=== PATIENT | female | born 2000 | race Caucasian/White ===

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

== ENCOUNTER 2024-12-21 11:31 | Emergency (ER) | payer MEDICAID, SELFPAY ==
[2024-12-21 11:32] VITALS: BP 117/74; PULSE 114; RESP 18; TEMP 36.6; O2SAT 100; BMI 41.0
--- NOTE | 2024-12-21 11:45 | EKG12_ITS ---
Test Reason : SOB Blood Pressure : */* mmHG Vent. Rate : 98 BPM Atrial Rate : 98 BPM P-R Int : 146 ms QRS Dur : 82 ms QT Int : 358 ms P-R-T Axes : 48 37 24 degrees QTcB Int : 457 ms Normal sinus rhythm Normal ECG Confirmed by ERMELINDA PRICE, DANITA ([id number]), commercial production editor JUAN A SIMMONS ([id number]) on 12/23/2024 6:32:27 AM Referred By: HAVEN Confirmed By: DANITA WADSWORTH MD
--- NOTE | 2024-12-21 11:53 | EDS_ITS ---
HPI <LESTER Justin - Last Filed: 12/21/24 17:49> History of Present Illness Chief Complaint: Shortness of Breath Narrative Narrative: Patient presenting today with shortness of breath and lightheadedness that have been ongoing over the past several weeks. She is currently 25 weeks , she is G2, P1. She reports that her symptoms worsened this morning, prompting her to come in. She primarily notices the shortness of breath with exertion but does occasionally have it at rest as well. 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 She denies any history of blood clots or recent surgery/travel/immobilization. She denies any complications with her previous , she reports that she is healthy otherwise, no cardiac history PFSH <LESTER Justin - Last Filed: 12/21/24 17:49> PFSH Medical History Sinus tachycardia Home Medications ?Medication ?Instructions ?Recorded ?Last Taken ?Type metoprolol succinate 25 mg 25 mg PO DAILY PRN 06/29/23 Unknown History tablet,extended release 24 hr (Toprol XL) Allergy/AdvReac Type Severity Reaction Status Date / Time No Known Allergies Allergy Verified 12/21/24 11:32 Family History Grandfather Diabetes Myocardial infarction Father Hypertension Surgical History Previous section Social History Smoking Status: Current every day smoker tobacco type: e-cigarettes alcohol intake: current substance use type: does not use caffeine: No ROS <LESTER Justin - Last Filed: 12/21/24 17:49> ROS ED Constitutional Constitutional ED: Denies chills or fever(s) Cardiovascular Cardiovascular: Denies chest pain Respiratory/Chest Respiratory/Chest: Reports dyspnea and dyspnea on exertion; Denies cough Gastrointestinal Gastrointestinal: Denies abdominal pain, nausea or vomiting Genitourinary Genitourinary ED: Reports other Details: Patient denies vaginal bleeding ; Denies dysuria, hematuria or urinary urgency Musculoskeletal Musculoskeletal: Denies arthralgias or myalgias Integumentary Denies rash Neurologic Neurologic: Reports other Details: Patient denies vertiginous dizziness ; Denies weakness EXAM <LESTER Justin - Last Filed: 12/21/24 17:49> Physical Exam Const Vital Signs: 12/21/24 11:32 12/21/24 11:57 12/21/24 13:23 Temperature 98 F Temperature Source Oral Pulse Rate 114 H 100 Respiratory Rate 18 19 H Respiratory Effort Short of Breath Blood Pressure 117/74 126/72 H Blood Pressure Mean 88 90 Pulse Ox 100 100 Oxygen Delivery Method Room Air Room Air Room Air 12/21/24 15:00 Temperature Temperature Source Pulse Rate 71 Respiratory Rate 18 Respiratory Effort Blood Pressure Blood Pressure Mean Pulse Ox 98 Oxygen Delivery Method Room Air Positive well nourished, well developed and no apparent distress General Appearance ED: well developed HEENT Reports normocephalic and head/scalp atraumatic Mouth ED: Yes moist mucous membranes normal Eyes PERRL and EOMs intact bilaterally Neck full ROM and supple Chest Wall inspection of chest normal Resp normal respiratory effort and clear to auscultation bilaterally Cardio regular rate and regular rhythm GI soft to palpation, non-tender, non-distended and no masses Back/Spine normal ROM and normal to inspection Extremity normal to inspection and full ROM Neuro oriented x3, moves all extremities, no focal motor deficits and no sensory deficits noted Sensorium / Orientation: awake and alert Psych mental status grossly normal and thought process normal Skin no rashes or lesions noted and no wounds <Dr. William Mckeon MD - Last Filed: 12/21/24 16:10> Physical Exam Const Vital Signs: 12/21/24 11:32 12/21/24 11:57 12/21/24 13:23 Temperature 98 F Temperature Source Oral Pulse Rate 114 H 100 Respiratory Rate 18 19 H Respiratory Effort Short of Breath Blood Pressure 117/74 126/72 H Blood Pressure Mean 88 90 Pulse Ox 100 100 Oxygen Delivery Method Room Air Room Air Room Air 12/21/24 15:00 Temperature Temperature Source Pulse Rate 71 Respiratory Rate 18 Respiratory Effort Blood Pressure Blood Pressure Mean Pulse Ox 98 Oxygen Delivery Method Room Air MDM <LESTER Justin - Last Filed: 12/21/24 17:49> MDM MDM Narrative Medical decision making narrative: Patient presenting today with shortness of breath and lightheadedness she has had intermittently over the past several weeks that worsened this morning. She is nontoxic-appearing, O2 saturation is 100% on room air, she is initially tachycardic at 114 bpm. Cardiac labs will be obtained as well as a D-dimer to assess for PE. Orthostatic vital signs will be obtained and she will be given IV fluids. Labs obtained, WBC slightly elevated at 11.6, BMP and troponin are unremarkable, D-dimer slightly elevated at 0.68, CT of the chest obtained to assess for PE and is negative. No pneumonia seen either. On reexamination she is doing well. She is able to ambulate. I recommended that she follow-up with her PCP and OB and she will be discharged home in stable condition. I have personally performed a face to face assessment of the patient and have reviewed the RENETTA Note. I performed a substantive portion of the visit including all aspects of the following. My melendrez findings include: History is [21-year-old female who currently 25 weeks . G2, P1. Ab0. Patient complaining of shortness of breath. No chest pain. No hemoptysis. No history of DVT or PE. No leg pain or swelling.] Exam is [well-appearing 24-year-old female. Vital signs stable afebrile. Pulse ox 100% on room air no signs hypoxia. H EENT exam unremarkable. Moist with members. Neck nontender no lymphadenopathy. Lungs clear to auscultation bilaterally. Heart regular rate and rhythm rate about type 2 diabetes 88 with no murmur. Chest wall and ribs nontender. Abdomen soft and nontender. Gravid uterus. Nontender. Moving all 4 extremities. Calves are nontender without edema or cords. Normal range of motion. Normal strength. Back nontender. Neurologically she is awake alert.] Medical Decision Making [25-week female complaint shortness of breath. No URI symptoms. No chest pain or hemoptysis. Consider cardiac etiology versus PE versus anemia. Pressure versus infection. Initial workup unremarkable. D-dimer was elevated CTA shows no PE. Should be discharged to home. Patient doing well prior to discharge. Lab Data Labs: Laboratory Results - last 24 hr 12/21/24 11:53 WBC 11.6 H RBC 3.75 L Hgb 11.1 L Hct 33.5 L MCV 89.3 MCH 29.6 MCHC 33.1 RDW Std Deviation 43.6 RDW Coeff of [place] 13.3 Plt Count 238 MPV 11.6 Immature Gran % (Auto) 0.500 Neut % (Auto) 76.6 H Lymph % (Auto) 14.[address] [place] % (Auto) 7.1 Eos % (Auto) 1.0 Baso % (Auto) 0.2 Absolute Neuts (auto) 8.8 H Absolute Lymphs (auto) 1.69 Nucleated RBC % 0 D-Dimer Quant (PE/DVT) 0.68 H* Sodium 140 Potassium 3.5 Chloride 109 H Carbon Dioxide 24.0 Anion Gap 7 BUN 6 L Creatinine 0.55 Estim Creat Clear Calc 191.32 Est GFR (MDRD) Af Amer 174 Est GFR (MDRD) Non-Af 144 BUN/Creatinine Ratio 10.8 Glucose 68 L Calcium 8.8 Troponin I High Sens < 3 L Radiography Diagnostic Testing: Clinical Impression(s) from Imaging Studies Chest X-Ray 12/21/24 12:03 IMPRESSION: No acute airspace abnormality. Reading Location: [facility] Chest CTA 12/21/24 12:44 IMPRESSION: No acute process. One or more dose reduction techniques were used (e.g., Automated exposure control, adjustment of the mA and/or kV according to patient size, use of iterative reconstruction technique). Reading Location: [facility] EKG Initial EKG: Comments: 98 bpm, normal sinus rhythm, no ST elevation, interpreted by attending ED physician <Dr. William Mckeon MD - Last Filed: 12/21/24 16:10> [facility] Narrative Medical decision making narrative: Patient presenting today with shortness of breath and lightheadedness she has had intermittently over the past several weeks that worsened this morning. She is nontoxic-appearing, O2 saturation is 100% on room air, she is initially tachycardic at 114 bpm. Cardiac labs will be obtained as well as a D-dimer to assess for PE. Orthostatic vital signs will be obtained and she will be given IV fluids. I have personally performed a face to face assessment of the patient and have reviewed the RENETTA Note. I performed a substantive portion of the visit including all aspects of the following. My melendrez findings include: History is [21-year-old female who currently 25 weeks . G2, P1. Ab0. Patient complaining of shortness of breath. No chest pain. No hemoptysis. No history of DVT or PE. No leg pain or swelling.] Exam is [well-appearing 24-year-old female. Vital signs stable afebrile. Pulse ox 100% on room air no signs hypoxia. H EENT exam unremarkable. Moist with members. Neck nontender no lymphadenopathy. Lungs clear to auscultation bilaterally. Heart regular rate and rhythm rate about type 2 diabetes 88 with no murmur. Chest wall and ribs nontender. Abdomen soft and nontender. Gravid uterus. Nontender. Moving all 4 extremities. Calves are nontender without edema or cords. Normal range of motion. Normal strength. Back nontender. Neurologically she is awake alert.] Medical Decision Making [25-week female complaint shortness of breath. No URI symptoms. No chest pain or hemoptysis. Consider cardiac etiology versus PE versus anemia. Pressure versus infection. Initial workup unremarkable. D-dimer was elevated CTA shows no PE. Should be discharged to home. Patient doing well prior to discharge. History & Record Review Discussion w/independent historian: Patient and Significant other Lab Data Attestation: I reviewed the patient's lab results. Lab results narrative: CBC white count 11.6. H&H 11 and 33. Platelets 238. D-dimer is elevated 0.68. Chemistries show a gap of 7. BUN of 6 creatinine 0.5. Glucose 68. Troponin less than 3. Labs: Laboratory Results - last 24 hr 12/21/24 11:53 WBC 11.6 H RBC 3.75 L Hgb 11.1 L Hct 33.5 L MCV 89.3 MCH 29.6 MCHC 33.1 RDW Std Deviation 43.6 RDW Coeff of [place] 13.3 Plt Count 238 MPV 11.6 Immature Gran % (Auto) 0.500 Neut % (Auto) 76.6 H Lymph % (Auto) 14.[address] [place] % (Auto) 7.1 Eos % (Auto) 1.0 Baso % (Auto) 0.2 Absolute Neuts (auto) 8.8 H Absolute Lymphs (auto) 1.69 Nucleated RBC % 0 D-Dimer Quant (PE/DVT) 0.68 H* Sodium 140 Potassium 3.5 Chloride 109 H Carbon Dioxide 24.0 Anion Gap 7 BUN 6 L Creatinine 0.55 Estim Creat Clear Calc 191.32 Est GFR (MDRD) Af Amer 174 Est GFR (MDRD) Non-Af 144 BUN/Creatinine Ratio 10.8 Glucose 68 L Calcium 8.8 Troponin I High Sens < 3 L Radiography Diagnostic Testing: Clinical Impression(s) from Imaging Studies Chest X-Ray 12/21/24 12:03 IMPRESSION: No acute airspace abnormality. Reading Location: [facility] Chest CTA 12/21/24 12:44 IMPRESSION: No acute process. One or more dose reduction techniques were used (e.g., Automated exposure control, adjustment of the mA and/or kV according to patient size, use of iterative reconstruction technique). Reading Location: [facility] Chest x-ray, 2 views, AP and lateral, interpreted myself and radiologist shows no acute abnormality. No pneumonia. Normal cardiac silhouette. No effusions. No failure. Normal lungs. Discharge Plan Triage Chief Complaint: Shortness of Breath ED Midlevel Provider: Sheila Gil ED Provider: William Mckeon Dx/Rx/DC Orders Clinical Impression: Shortness of breath, Light-headedness, Second trimester Instructions: ED Dyspnea, ED Near-Fainting, Uncertain Cause Prescriptions: No Action metoprolol succinate [Toprol XL] 25 mg tablet extended release 24 hr 25 mg PO DAILY PRN Primary Care Provider: Lora Grimm Referrals: Dalia Berumen OLDER ADULT SOCIAL WORK SPECIALIST, OLDER ADULT SOCIAL WORK SPECIALIST-C [Non-Staff] - 5-7 Days Activity Restrictions/Additional Instructions: Follow-up with your OB, return for any other concerns. Print Language: Azerbaijani Disposition Disposition: Home, Self Care Discharge Date/Time: 12/21/24 15:43
[2024-12-21] MEDS: 0.9% Normal Saline (1000mL) 1,000 ML 999 ML IV (11:56)
[2024-12-21 11:57] VITALS: O2SAT 100
--- NOTE | 2024-12-21 12:03 | RAD_ITS ---
PROCEDURE: CHEST PA AND LATERAL REASON FOR EXAM: Shortness of breath TECHNIQUE: Two views of the chest COMPARISON: None FINDINGS: Cardiomediastinal silhouette is within normal limits. Lungs are clear. No sizable pneumothorax. RAD/Chest PA and Lateral IMPRESSION: No acute airspace abnormality. Reading Location: [facility]
[2024-12-21 12:26] LABS: Absolute Lymphocyte Count 1.69 X10^3/uL (0.83-4.51); Absolute Neutrophil Count 8.8 X10^3/uL (2.0-7.7); Basophil# 0.02 X10^3/uL; Basophil% 0.2 % (0-1); Eosinophil# 0.12 X10^3/uL; Hematocrit 33.5 % (37-47); Hemoglobin 11.1 g/dL (12.0-15.0); Lymphocyte # 1.69 X10^3/ul (0.83-4.51); Lymphocyte % 14.6 % (19-41); Mean Corp Hgb Conc 33.1 g/dL (32-36); Mean Corpuscular Hgb 29.6 pg (27.0-32.0); Mean Corpuscular Volume 89.3 fL (81-99); Mean Platelet Vol. 11.6 fl (6.2-12.0); Monocyte# 0.82 X10^3/uL; Monocyte% 7.1 % (0-10); NRBC Flagged by Analyzer 0 % (0-5); Neutrophil # 8.84 X10^3/uL (2.7-7.7); Neutrophil % 76.6 % (47-70); Platelet Count 238 K/mm3 (150-450); RBC Distribution Width CV 13.3 % (11.6-14.6); RBC Distribution Width SD 43.6 fl (35.1-43.9); Red Blood Count 3.75 M/mm3 (4.2-5.4); White Blood Count 11.6 K/mm3 (4.4-11.0)
[2024-12-21 12:39] LABS: Anion Gap 7 (5-15); BUN 6 mg/dL (7-18); BUN/Creat Ratio 10.8 RATIO (10-20); Calcium,Total 8.8 mg/dL (8.5-10.1); Chloride 109 mmol/L (98-107); Creatinine, Serum 0.55 mg/dL (0.55-1.02); EST Glomerular Filtration Rate 144 mL/min (>60); Est Glom Filt Rate - Afr Amer 174 mL/min (>60); Estimated Creatinine Clearance 191.32 ml/min; Glucose 68 mg/dL (74-106); Potassium 3.5 mmol/L (3.5-5.1); Sodium Level 140 mmol/L (136-145); Troponin-I HS < 3 pg/mL (3.0-54.0)
[2024-12-21 12:40] LABS: D-Dimer Quantitative (DVT/PE) 0.68 FEU/ug/m (0.27-0.49)
--- NOTE | 2024-12-21 12:44 | CT_ITS ---
PROCEDURE: CTA CHEST with IV CONTRAST REASON FOR EXAM: Shortness of breath TECHNIQUE: Multiple contiguous axial images of the chest were obtained after the administration of intravenous contrast. Two-dimensional and three-dimensional MIP coronal and sagittal reformatted images were reconstructed. Low-dose imaging technique was utilized. COMPARISON: Same day chest FINDINGS: Heart size is within normal limits. No significant pericardial effusion or coronary artery calcifications. Normal caliber thoracic aorta. Normal caliber pulmonary arteries without filling defects within the limits of motion. No suspicious adenopathy. No acute findings in the visualized upper abdomen. Superficial soft tissues are within normal limits. Central airways are patent. No acute infiltrates, pleural effusion or pneumothorax. No suspicious pulmonary nodule or mass. No acute osseous abnormality. CT/CTA Chest W/WO Contrast IMPRESSION: No acute process. One or more dose reduction techniques were used (e.g., Automated exposure contr ol, adjustment of the mA and/or kV according to patient size, use of iterative reconstruction technique). Reading Location: [facility]
[2024-12-21 13:23] VITALS: BP 126/72; PULSE 100; RESP 19; O2SAT 100
[2024-12-21 15:00] VITALS: PULSE 71; RESP 18; O2SAT 98
--- NOTE | 2024-12-21 15:03 | ED.RN ---
called CT about pending results, still awaiting official radiology report
== END 2024-12-21 15:43 | disposition home or self-care (01) ==
PROVIDERS: Physician Assistant; Emergency Provider Emergency Medicine; PCP Nurse Practitioner Family; Visit Provider Emergency Medicine
DX: O99.891 Other specified diseases and conditions complicating pregnancy (principal); E11.9 Type 2 diabetes mellitus without complications; O99.332 Smoking (tobacco) complicating pregnancy, second trimester; R06.02 Shortness of breath; Z3A.25 25 weeks gestation of pregnancy; F17.210 Nicotine dependence, cigarettes, uncomplicated; R42 Dizziness and giddiness; O24.912 Unspecified diabetes mellitus in pregnancy, second trimester
CPT/HCPCS: 71046; 71275; 80048; 84484; 85025; 85379; 93005; 96360; 99282; Q9967; A4216

== ENCOUNTER 2025-03-08 11:15 | Outpatient (CLI) | payer MEDICAID, SELFPAY ==
[2025-03-08 11:24] VITALS: BP 122/78; PULSE 124; O2SAT 100
[2025-03-08 11:25] VITALS: RESP 16; TEMP 36.7; O2SAT 100
[2025-03-08 11:31] VITALS: BMI 40.1
--- NOTE | 2025-03-11 16:27 | OB.TRI.HP_ITS ---
HPI - General General Date of Admission: 03/08/25 HPI Narrative BRINA RINCON, is a 25 F who presents for contractions and concerns for labor. with history of repeat section. No vaginal bleeding or fluid leakage. Maternal Data Information Final KARIE: 04[birth year]25 [facility] Medical History (Updated 03/11/25 @ 16:30 by Shaina Lorenzana CNM) Sinus tachycardia Home Medications ?Medication ?Instructions ?Recorded ?Last Taken ?Type metoprolol succinate 25 mg 25 mg PO DAILY PRN 06/29/23 Unknown History tablet,extended release 24 hr (Toprol XL) Allergy/AdvReac Type Severity Reaction Status Date / Time No Known Allergies Allergy Verified 03/08/25 11:35 Family History Grandfather Diabetes Myocardial infarction Father Hypertension Surgical History (Updated 03/11/25 @ 16:30 by Shaina Lorenzana CNM) Previous section Social History Smoking Status: Current every day smoker tobacco type: e-cigarettes alcohol intake: current substance use type: does not use caffeine: No NST FHR Rate Baby A Baseline: 140 Variability:: Moderate Accelerations:: 15 x 15 Decelerations:: None NST Reactive:: Yes Uterine Activity:: Irritability Assessment & Plan (1) 36 weeks gestation of : (2) False labor: PLAN: Plan 1) No signs of labor, cervical exam unchanged 2) NST reactive 3) D/C home
== END 2025-03-08 12:20 | disposition home or self-care (01) ==
LOC: WPOUT 11:22 → WP 11:23
PROVIDERS: PCP Nurse Practitioner Family; Referring Provider Advanced Practice Midwife; Visit Provider Advanced Practice Midwife
DX: O47.03 False labor before 37 completed weeks of gestation, third trimester (principal); O99.333 Smoking (tobacco) complicating pregnancy, third trimester; F17.290 Nicotine dependence, other tobacco product, uncomplicated; Z3A.36 36 weeks gestation of pregnancy
CPT/HCPCS: 59025; 59050; 99221; G0378

== ENCOUNTER 2025-03-22 01:20 | Outpatient (CLI) | payer MEDICAID, SELFPAY ==
[2025-03-22 01:28] VITALS: BP 124/79; PULSE 127; PULSE 135; O2SAT 100
[2025-03-22 01:29] VITALS: RESP 20; TEMP 36.5
[2025-03-22 01:33] VITALS: PULSE 102; O2SAT 100
[2025-03-22 01:38] VITALS: O2SAT 83
[2025-03-22 02:19] VITALS: BMI 40.3
--- NOTE | 2025-03-22 11:54 | OB.TRI.NOTE ---
HPI - General HPI Narrative BRINA RINCON, is a 25 F at 38.2 weeks gestation who presents with contractions. Maternal Data Information KARIE Calculator Estimated Delivery Date Method Current WG Current Estimate 04/03/25 Manual 38w 2d PFSH [facility] Medical History (Updated 03/22/25 @ 11:59 by Re Levy CNM) Sinus tachycardia Home Medications ?Medication ?Instructions ?Recorded ?Last Taken ?Type aspirin 81 mg capsule 81 mg PO DAILY 03/22/25 03/21/25 10:00 History cholecalciferol (vitamin D3) 25 25 mcg PO DAILY 03/22/25 03/21/25 10:00 History mcg (1,000 unit) tablet (Vitamin D3) citalopram 10 mg tablet 20 mg PO DAILY anxiety 03/22/25 03/21/25 10:00 History ferrous sulfate 325 mg (65 mg 325 mg PO DAILY 03/22/25 Unknown History iron) tablet (Iron (ferrous sulfate)) vits no.130-ferrous fum 1 tab PO DAILY 03/22/25 03/21/25 10:00 History 27 mg iron-folic acid 800 mcg tablet ( Vitamin) Allergy/AdvReac Type Severity Reaction Status Date / Time No Known Allergies Allergy Verified 03/22/25 01:44 Family History Grandfather Diabetes Myocardial infarction Father Hypertension Surgical History (Updated 03/13/25 @ 11:[address] Amanda Joya MD) Previous section Social History Smoking Status: Current every day smoker tobacco type: e-cigarettes alcohol intake: current substance use type: does not use caffeine: No ROS Eyes Eyes: Denies blurry vision Cardiovascular Cardiovascular: Reports none; Denies chest pain at rest, chest pain with activity or dizziness Respiratory/Chest Respiratory/Chest: Denies cough or dyspnea Gastrointestinal Gastrointestinal: Reports none and other; Denies diarrhea or vomiting Genitourinary Genitourinary: Denies dysuria Musculoskeletal Musculoskeletal: Reports none Integumentary Integumentary: Reports none; Denies rash Neurologic Neurologic: Denies dizziness, headache(s) or other visual disturbances Psychiatric Psychiatric: Reports none Physical Exam Const alert and no apparent distress General Appearance: cooperative Orientation / Consciousness: awake Exam Limitations: no limitations HEENT normocephalic Eyes General Eye: normal appearance of both eyes Neck full ROM Chest inspection of chest normal Resp normal respiratory effort and normal air movement Effort and Inspection: symmetric chest movement Auscultation: clear to auscultation bilaterally Cardio regular rate GI soft to palpation, non-tender and non-distended Inspection: and other Back/Spine normal ROM Extremity full ROM, normal capillary refill and no calf tenderness Skin no rashes or lesions noted Neuro oriented x3 and CN's II-XII intact bilaterally Psych mental status grossly normal NST FHR Rate Baby A Baseline: 135 Variability:: Moderate Accelerations:: 15 x 15 Decelerations:: None NST Reactive:: Yes FHR Category:: Category I Uterine Activity:: irregular Assessment & Plan (1) Previous delivery affecting : (2) BMI greater than 40: (3) Maternal obesity syndrome in third trimester: (4) 38 weeks gestation of : (5) Irregular contractions: PLAN: Plan Extended monitoring NST reactive CE - unchanged D/C home - Scheduled for repeat C/S in 4 days
[2025-03-22 12:26] VITALS: BP 133/68; PULSE 78; O2SAT 100
== END 2025-03-22 04:30 | disposition home or self-care (01) ==
LOC: WPOUT 01:24 → WP 01:25
PROVIDERS: PCP Nurse Practitioner Family; Referring Provider Advanced Practice Midwife; Visit Provider Advanced Practice Midwife
DX: O47.1 False labor at or after 37 completed weeks of gestation (principal); O99.333 Smoking (tobacco) complicating pregnancy, third trimester; F17.290 Nicotine dependence, other tobacco product, uncomplicated; Z3A.38 38 weeks gestation of pregnancy
CPT/HCPCS: 59025; 59050; 99221; G0378

== ENCOUNTER 2025-03-27 09:37 | Inpatient (IN) | payer MEDICAID, SELFPAY ==
--- NOTE | 2025-03-13 11:44 | HP.PCM_ITS ---
History and Physical Date of Admission: 03/27/25 HPI: The patient is a 25 year old female presenting for pre-operative visit. She is scheduled for and tubal sterilization, for previous c/s and sterilization request on 03/27/25. Procedure discussed along with risks, benefits and complications. Other alternatives discussed for management. Consent form signed? Yes. ? ? PAST MEDICAL HISTORY PAST MEDICAL HISTORYDiagnosisDate?History of delivery of macrosomal infant08/02/2024?History of depression??History of pre- eclampsia08/02/2024? hypertension (HCC)??on medication for 6 weeks PP ? ? PAST SURGICAL HISTORY PAST SURGICAL HISTORYProcedureLateralityDate? SECTION HX?08/05/2021 ? ? ? CURRENT MEDICATIONS Current Outpatient MedicationsMedicationSigDispenseRefill?citalopram (CELEXA) 20 mg tabletTake 1 tablet by mouth once daily.???ferrous sulfate (IRON ORAL)Take 65 mg by mouth once daily.??? VITAMIN 27 mg iron- 0.8 mg tabletTake 1 tablet by mouth every afternoon.???aspirin, enteric coated (ECOTRIN LOW STRENGTH) 81 mg EC tabletTake 1 tablet by mouth once daily.90 tablet3?cholecalciferol, vitamin D3, (VITAMIN D3 ORAL)Take by mouth.???citalopram hydrobromide (CELEXA) 10 mg tabletTake 20 mg by mouth every afternoon. (Patient not taking: Reported on 03/06/2025)???No current facility- administered medications for this visit. ? ? ALLERGIES: Patient has no known allergies. ? PERSONAL HISTORY: SOCIAL HISTORY Social History?Tobacco Use?Smoking status:Former??Current packs/day:0.00??Average packs/day:1 pack/day for 1.1 years (1.1 ttl pk- yrs)??Types:Cigarettes??Start date:04/13/2017??Quit date:05/08/2018??Years since quittin.8??Passive exposure:Yes?Smokeless tobacco:Never?Tobacco comments:?? outsideVaping Use?Vaping status:Former?Quit date:09/01/2022ubstance Use Topics ?Alcohol use:Not Currently??Comment: not while ?Drug use:Never ? FAMILY HISTORY: FAMILY HISTORY No family history on file. ? REVIEW OF SYMPTOMS: GENERAL: denies fevers or chills ENDOCRINOLOGY: has not been on steroids Cardiology : denies palpitations or chest pain Respiratory: denies SOB or cough Hematology: denies history of prolonged bleeding or easy bruising or VTE Allergy: Denies history of personal or family history of allergy to anesthesia ? PHYSICAL EXAMINATION: ? VITALS: Blood pressure 110/74, pulse 105, height 162.6 cm (5' 4), weight 108 kg (238 lb), last menstrual period 06/27/2024, SpO2 99%. ? GENERAL: The patient is well nourished, well hydrated in no acute distress. , The patient is oriented to time, place, and person. NECK: Supple. No lynphadenopathy, normal thyroid, no thyromegaly. LUNGS: Clear to auscultation bilaterally. no wheezes, rhonchi or rales HEART: Regular rate and rhythm, Normal heart sounds, and No murmurs or gallops ABD- soft, nontender, gravid ? IMPRESSION: Estimated Date of Delivery: 04/03/25 ? PLAN: The risks/benefits/alternatives and personal involved for the planned C- section w/ tubal sterilization were reviewed with the patient. Her questions were answered to her satisfaction and she desires to proceed. Consent was signed. I reviewed with her postop instructions and expectations. ? ? I have reviewed and updated past medical and surgical history, medications and allergies Assessment & Plan Assessment/Plan (1) High-risk in third trimester: (2) 39 weeks gestation of : (3) Maternal obesity syndrome in third trimester: (4) BMI greater than 40: (5) Previous delivery affecting : (6) Sterilization:
[2025-03-27] VITALS (17 sets, daily range): BP systolic 91–134; BP diastolic 44–83; PULSE 68–108; RESP 14–16; TEMP 36.1–36.8; O2SAT 96–100; BMI 39.6
[2025-03-27] MEDS: Lactated Ringers 1,000 ML 999 ML IV (10:00)
[2025-03-27 10:16] LABS: Basophil# 0.02 X10^3/uL; Basophil% 0.4 % (0-1); Eosinophil# 0.06 X10^3/uL; Eosinophils% 1.1 % (0-5); Hematocrit 32.4 % (37-47); Hemoglobin 10.5 g/dL (12.0-15.0); Lymphocyte % 19.3 % (19-41); Mean Corp Hgb Conc 32.4 g/dL (32-36); Mean Corpuscular Hgb 26.7 pg (27.0-32.0); Mean Corpuscular Volume 82.4 fL (81-99); Mean Platelet Vol. 12.3 fl (6.2-12.0); Monocyte# 0.55 X10^3/uL; Monocyte% 9.6 % (0-10); NRBC Flagged by Analyzer 0 % (0-5); Neutrophil # 3.96 X10^3/uL (2.7-7.7); Neutrophil % 69.4 % (47-70); Platelet Count 182 K/mm3 (150-450); RBC Distribution Width CV 14.2 % (11.6-14.6); RBC Distribution Width SD 41.5 fl (35.1-43.9); Red Blood Count 3.93 M/mm3 (4.2-5.4); White Blood Count 5.7 K/mm3 (4.4-11.0)
[2025-03-27] MEDS: Acetaminophen 500 MG Tablet 1000 MG PO ×3 (10:58→23:40)
[2025-03-27] MEDS: Cefazolin 2 GM in 0.9% Normal Saline (100mL Bag) 100 ML IV (10:59)
[2025-03-27] MEDS: TRANEXAMIC ACID 1,000 MG in 0.9% Normal Saline (100mL Bag) 100 ML 440 MG IV (10:59)
[2025-03-27] MEDS: Lactated Ringers 1,000 ML 150 ML IV (10:59)
[2025-03-27 11:02] LABS: Syphilis Antibodies Nonreactive (Nonreactive)
[2025-03-27] MEDS: Sodium Citrate/Citric Acid 30 ML UDC PO (12:00)
--- NOTE | 2025-03-27 13:06 | EX.PCM.OBRPT ---
Assessment & Plan (1) BMI greater than 40: (2) Previous delivery affecting : (3) Maternal obesity syndrome in third trimester: (4) High-risk in third trimester: (5) 39 weeks gestation of : (6) Sterilization: (7) Single live : Maternal Data Information KARIE Calculator Estimated Delivery Date Method Current WG Current Estimate 04/03/25 Manual 39w 0d Final KARIE: 04/03/25 Gestational age: 39 0/7 Operative Report (OB) Details Procedure Type: low transverse (with bilateral salpingectomy) Date of Procedure: 03/27/25 Procedure Start Time: 12:34 Procedure Stop Time: 13:05 Time of Delivery: 12:35 Pre-Operative Diagnosis: Repeat Elective and Desires elective sterilization Post-Operative Diagnosis: Same as Pre-operative diagnosis Classification: Scheduled Type of Anesthesia: Spinal Special Medications: duramorph, TXA Antibiotic Given: Ancef 2 grams IV x1 Drain: Trejo to straight drain Estimated Blood Loss: 800 Fluids Replaced: 1100 Findings Description of surgery: The patient was taken to the operating room. She was prepped and draped in the dorsal supine position with a leftward tilt. A Pfannenstiel skin incision was made approximately 2 cm above the symphysis pubis and carried through to underlying layer fascia with the scalpel. The fascia was incised incised in the midline and extended laterally with the Singh scissors. The fascia was dissected off the rectus muscles with blunt and sharp dissection. The rectus muscles were in the midline and the peritoneum was entered bluntly. The peritoneal incision was stretched and the bladder blade was placed. The uterine incision was made in a low transverse fashion with the scalpel and extended superiorly and inferiorly with blunt dissection. The amniotic membranes were ruptured bluntly and clear amniotic fluid returned. The infant's head was brought to the incision in the flexed position and delivered without difficulty. The remainder of the infant was delivered with gentle traction and fundal pressure in the standard fashion. The mouth and nares were bulb suctioned. The cord was clamped and cut as the was stimulated. Cord clamping was delayed 30 seconds. The infant was handed off to the waiting nursing staff. The placenta was delivered with fundal massage and gentle traction in the standard fashion. The uterus was exteriorized and cleared of all clots and debris. The cervix was dilated with a ring forcep. The uterine incision was closed with #1 Vicryl in a running locked fashion. A second layer of the same suture was used in an imbricating fashion to obtain hemostasis. The incision was examined and was found to be hemostatic. Some peritoneal edges were Bovie cauterized. Hemablast was placed over the incision The uterus was placed back into the peritoneal cavity and hemostasis was again confirmed. The left fallopian tube was identified and followed out to the fimbriated end. The LigaSure device was used to clamp seal and transect the antimesenteric portion of the broad ligament until the tube was freed up to the cornual insertion. The cornual insertion of the tube was clamped sealed and transected with the LigaSure device and the tube was handed off. The same procedure was performed on the contralateral side and excellent hemostasis was noted. The rectus muscles were examined and any bleeding was Bovie cauterized. The parietal peritoneum and rectus muscles were closed en bloc with an 0 Vicryl running suture. Hemablast was placed over the incision. The rectus fascia was examined and any bleeding was Bovie cauterized and the rectus fascia was closed with #1 PDS suture in a running standard fashion. The subcutaneous tissue was examining and any bleeding was Bovie cauterized. The subcutaneous tissue was reapproximated with 3-0 Vicryl suture. The skin was closed in a subcuticular fashion by the INDUSTRIAL CLEANER with me present in the labor and delivery suite. I performed the remainder of the procedure with assistance. All sponge, lap, and needle counts were correct. The patient was taken to her room for recovery in a stable condition. Surgical findings: Normal placenta with three-vessel cord, normal tubes and ovaries, no significant intraperitoneal adhesions noted Presentation: Vertex Amniotic Membrane Rupture Type: Artificial Amniotic Fluid Description: Clear Placental Delivery Description: Expressed Placenta Disposition: [facility] Specimen collected: Yes Description of specimen(s) removed: Bilateral fallopian tubes Cord Vessel Description: 3 Vessels Cord Entanglement: None A gender: Female (9 pound 0 ounces, OLIVE) (1 minute): 9 Delayed Cord Clamping: Yes Tool Design Drafter clinical informatics strategist: Yes Wildlife Removal Specialist: Antolin Sellers Tasks completed by talent assistant: Closing and Retracting Additional customer support assistant?: No Complications Complications: No
[2025-03-27] MEDS: Oxytocin 15 Units/NS 250ml 15 UNITS/250 ML IV.SOLN 83 UNITS IV (13:25)
--- NOTE | 2025-03-27 13:27 | FALS_PTH ---
PATIENT: MCKENZIE CALVIN LOC: [facility] U#:[id number] AGE/SX: 25/F ROOM: WP003 RE03/27/[address]: Dr. Amanda Joya MD : 2000 BED: 1 DIS: 03/28/2025 SPEC #: [id number] RECD: 03/27/25 14:40 STATUS: JORDANA RADHAArmen #: [id number] RHONDA: 03/27/25 13:[address]: Amanda Joya DEPT: SURGICAL PATHOLOGY RECD BY: Hudson Spangler ENTERED: 03/27/25 15:11 SP TYPE: FALL TUBES OTHR DR: Lora Grimm, YUDITH Tissues: A - Fallopian tube Procedures: Surgery Specimen Level II HEADER OPERATION: Tubal ligation PRE-OP DIAGNOSIS: Tubal TISSUE SUBMITTED: A- Fallopian tubes MICROSCOPIC DIAGNOSIS A. Bilateral fallopian tubes, sterilization, salpingectomy: * Right: no specific pathologic change (complete luminal cross-section). * Left: fibrovascular adhesions (complete luminal cross-section). MICROSCOPIC DESCRIPTION Slides are reviewed. GROSS DESCRIPTION A. Received fresh in a container labeled with the patient's name, date of , and bilateral fallopian tubes suture and R are 2 fimbriated fallopian tube segments, the right received with a stitch. The right is 7.5 cm in length by 0.6 cm in diameter with purple- carreno, smooth and glistening serosa with a 0.3 x 0.3 cm paratubal cyst. The fimbriated end is unremarkable. Sectioning reveals a pinpoint lumen. The left fimbriated fallopian tube is 7 cm in length and 1.0 cm in diameter. The serosa is casey-pink, smooth, and glistening with an attached 14 cm in length by 0.1 cm in diameter fragment of stringy soft tissue. The fimbriated end is unremarkable. Sectioning reveals a pinpoint lumen. Geospatial Engineer sections:A1. Right fallopian tubeA2. Left fallopian tube [facility] 03-27-2025 CPT:48419r1
[2025-03-27] MEDS: Ketorolac 30 MG/ML Syringe IV ×2 (14:08→19:57)
[2025-03-27 14:39] LABS: Pathology Specimen OB SEE PATHOLOGY REPORT
[2025-03-27] MEDS: 0.9% Saline Lock 10 ML Syringe IV ×2 (16:32→19:58)
[2025-03-27] MEDS: Citalopram 10 MG Tablet PO (18:37)
[2025-03-28] MEDS: Enoxaparin 40 MG/0.4 ML Syringe SC (00:14)
[2025-03-28] MEDS: 0.9% Saline Lock 10 ML Syringe IV (02:04)
[2025-03-28] MEDS: Ketorolac 30 MG/ML Syringe IV ×2 (02:04→08:12)
[2025-03-28 03:50] VITALS: BP 110/81; PULSE 93; RESP 16; TEMP 36.6; O2SAT 98
[2025-03-28 05:07] LABS: Hematocrit 27.8 % (37-47); Hemoglobin 9.1 g/dL (12.0-15.0); Mean Corp Hgb Conc 32.7 g/dL (32-36); Mean Corpuscular Hgb 26.7 pg (27.0-32.0); Mean Corpuscular Volume 81.5 fL (81-99); Mean Platelet Vol. 12.4 fl (6.2-12.0); Platelet Count 183 K/mm3 (150-450); RBC Distribution Width CV 14.3 % (11.6-14.6); RBC Distribution Width SD 41.9 fl (35.1-43.9); Red Blood Count 3.41 M/mm3 (4.2-5.4); White Blood Count 11.9 K/mm3 (4.4-11.0)
[2025-03-28] MEDS: Acetaminophen 500 MG Tablet 1000 MG PO ×2 (05:46→11:59)
[2025-03-28 08:10] VITALS: BP 104/60; PULSE 83; RESP 16; TEMP 36.4; O2SAT 98
--- NOTE | 2025-03-28 08:15 | PCM.PN.BLA ---
Progress Note Pain well-controlled. Average lochia. No nausea vomiting. Tolerating regular diet. No flatus yet. Physical Exam Narrative Extremities trace edema Const alert General Appearance: cooperative GI GI Narrative: soft, moderate distention, fundus firm, appropriately tender. Abdominal bandage clean dry and intact Assessment & Plan Assessment/Plan (1) delivery delivered: PLAN: Plan Postoperative day #1 status post repeat and tubal sterilization. is breast and bottlefeeding and doing well. Patient is doing well. She would like to be discharged home later today if okay with pediatrics and no other issues. She has chronic antepartum anemia. Hemoglobin is stable and appropriate for blood loss during surgery.
--- NOTE | 2025-03-28 08:21 | DS.PCM_ITS ---
Providers Date of Admission: 03/27/25 Primary Care Physician: YUDITH Wray Reason For Visit: REPEAT C SECTION Diagnosis Discharge Diagnosis (1) delivery delivered: Status: Acute Code(s): O82 - Encounter for delivery without indication Plan Postoperative day #1 status post repeat and tubal sterilization. is breast and bottlefeeding and doing well. Patient is doing well. She would like to be discharged home later today if okay with pediatrics and no other issues. She has chronic antepartum anemia. Hemoglobin is stable and appropriate for blood loss during surgery. Medications at Discharge Home Medications cholecalciferol (vitamin D3) 25 mcg (1,000 unit) tablet (Vitamin D3) 25 mcg PO DAILY 03/22/25 citalopram 10 mg tablet 20 mg PO DAILY anxiety 03/22/25 ferrous sulfate 325 mg (65 mg iron) tablet (Iron (ferrous sulfate)) 325 mg PO DAILY 03/22/25 vits no.130-ferrous fum 27 mg iron-folic acid 800 mcg tablet ( Vitamin) 1 tab PO DAILY 03/22/25 acetaminophen 500 mg tablet (Acetaminophen Extra Strength) 1,000 mg (2 x 500 mg) PO Q6H PRN fever or pain 20 days #90 tabs 03/28/25 docusate sodium 100 mg capsule (Colace) 100 mg PO BID 20 days #40 caps 03/28/25 ibuprofen 600 mg tablet 600 mg PO Q6H PRN Pain 20 days #60 TABLETS 03/28/25 Hospital Course Operations - (Repeat c/s and bilateral salpingectomy on 03/27/25) Procedures None Summary of Care Provided Minutes Spent on Discharge: 16 Hospital Course: 25-year-old female admitted for repeat section and tubal sterilization. This was performed on 03/27/2025 without complication. By postoperative day #1 she was ambulating urinating tolerating regular diet without difficulty. She desired discharge home with routine instructions and prescriptions. She is to follow-up in the office in 1-2 and 6 weeks or as needed. She declined narcotic prescription. Weight / BMI Weight Weight: 104.893 kg Body Mass Index (BMI) 39.6 ABG / Lab / Microbiology Data 03/28/25 04:31 Laboratory: Laboratory Results - last 24 hr 03/27/25 10:00: WBC 5.7, RBC 3.93 L, Hgb 10.5 L, Hct 32.4 L, MCV 82.4, MCH 26.7 L, MCHC 32.4, RDW Std Deviation 41.5, RDW Coeff of [place] 14.2, Plt Count 182, MPV 12.3 H, Immature Gran % (Auto) 0.200, Neut % (Auto) 69.4, Lymph % (Auto) 19.3, [place] % (Auto) 9.6, Eos % (Auto) 1.1, Baso % (Auto) 0.4, Absolute Neuts (auto) 4.0, Absolute Lymphs (auto) 1.10, Nucleated RBC % 0, Syphilis Total Ab Nonreactive, Blood Type A POSITIVE, Antibody Screen NEGATIVE 03/28/25 04:31: WBC 11.9 H, RBC 3.41 L, Hgb 9.1 L, Hct 27.8 L, MCV 81.5, MCH 26.7 L, MCHC 32.7, RDW Std Deviation 41.9, RDW Coeff of [place] 14.3, Plt Count 183, MPV 12.4 H D/C Instructions Discharge Diet: No restrictions May resume sexual activity in: 4-6 weeks Lifting Restrictions: 20 pounds Additional Activity Instructions: Nothing in the vagina for 4-6 weeks. You may return to work/school in 6 weeks. Call your doctor if your incision/area has: Continuous Slow Oozing, Sudden Increased Bleeding, Increased Pain/ Swelling, Increased Redness and Foul Smelling Discharge Call your doctor if you observe: Fever of 101 or Higher and Using more than 1 pad per hour (for 2 hours) Suture Line Care: Avoid Pulling/Pushing and Avoid Pinching/Bending Cleanse incision/area with: Keep Dressing Clean & Dry DC O2, CPAP, BIPAP Needs Home O2 Discharge instructions: No Please Follow Up With: Amanda Joya MD When: Call to make an appointment for an incision check in 1-2 [phone]. You will need a post check in 6 weeks. Meaningful Use Info Meaningful Use Meaningful Use Diagnoses (Choose all that apply): None applicable Ischemic Stroke Statin Dosing Therapy Reference: STATIN DOSE THERAPY REFERENCE: * Patients > 75 years receive moderate or high dose statin therapy. * Patients 75 years or YOUNGER should receive HIGH intensity statin dose unless contraindicated. You will be required to document reason for non-treatment if statin daily dose does not meet guidelines. HIGH DOSE STATIN THERAPY DAILY Atorvastatin > than or = to 40 mg Rosuvastatin > than or = to 20 mg Amlodipine + Atorvastatin > than or = to 2.5/40 mg Ezetimibe + Simvastatin 10/80 mg Simvastatin 80mg Discharge Plan Admission Admit Date/Time: 03/27/25 09:37 Primary Reason for Your Visit: Attending Provider: Amanda Joya Primary Care Provider: Lora Grimm Discharge Orders/Prescriptions Prescriptions: New acetaminophen [Acetaminophen Extra Strength] 500 mg tablet 1,000 mg PO Q6H PRN (Reason: fever or pain) 20 Days Qty: 90 1RF ibuprofen 600 mg tablet 600 mg PO Q6H PRN (Reason: Pain) 20 Days Qty: 60 1RF docusate sodium [Colace] 100 mg capsule 100 mg PO BID 20 Days Qty: 40 1RF Rx Instructions: as needed to keep stools soft Continued citalopram 10 mg tablet 20 mg PO DAILY Vitamin 27 mg iron- 800 mcg tablet 1 tab PO DAILY ferrous sulfate [Iron (ferrous sulfate)] 325 mg (65 mg iron) tablet 325 mg PO DAILY cholecalciferol (vitamin D3) [Vitamin D3] 25 mcg (1,000 unit) tablet 25 mcg PO DAILY Discontinued nitrofurantoin monohyd/m-cryst 100 mg capsule 1 cap PO BID aspirin 81 mg capsule 81 mg PO DAILY Referrals / Follow Up: Lora Grimm NP-C [Primary Care Provider] - Disposition Disposition (needs filled in before D/C Order can be placed): Home, Self Care
[2025-03-28] MEDS: Senna/Docusate Sodium 1 Tablet PO (11:58)
[2025-03-28] MEDS: Citalopram 10 MG Tablet PO (11:59)
[2025-03-28] MEDS: Ibuprofen 600 MG Tablet PO (14:20)
[2025-03-28 14:22] VITALS: BP 114/64; PULSE 90; RESP 16; TEMP 36.1; O2SAT 100
[2025-03-28] MEDS: SimETHICONE 80 MG Chewable Tablet PO (14:30)
--- NOTE | 2025-03-28 15:04 | CASEMGMT ---
Social Work Labor and Delivery Unit Patient Address: [address] [place] [id number] Phone number: [phone] Date and Time of Referral:?03/27/25, 1046 Referred By: Dr. Joya Date and time of intervention:?03/28/25, 1430 Reason for Referral:?? hx PPD, parents were/ are addicts and alcoholics Sw completed chart review and notes social work consult due to maternal mental health history and family history of substance use. Sw presented to bedside and introduced self to mother of baby (MOB- February). Sw explained reason for sw involvement, and completed psychosocial assessment. Informant:?? Medical record and mother of baby (MOB) History:? KEITH is 25 year old female who is 2, para 1- now 2 following labor and delivery of . MOB received routine care during with [facility]. KEITH presented to hospital for scheduled repeat on 03/27/25 at 39 weeks gestation. Baby girl, named Carol Bennett, was born weighing 9lb with apgars of 9 and 9 at one and five minutes of life, respectfully. MOB states that this is the second child for her and father of baby (LORRAINE Garcia) together. They also have a three year old son together, named Brown. MOB and FOElizabeth have been together for 7 years after meeting each other on Facebook. MOB denies and domestic violence or intimate partner violence between herself and FOB. MOB reports currently residing in the family home is herself, BANGB, Brown and now baby. No concerns of housing reported. Both parents drive and MOB has obtained all necessary baby supplies, including: car seat, safe sleep space, clothes, diapers and wipes. MOB states that ROBLES and her mom are her biggest supports. MOB states that her MOB is currently watching Brown while they are at the hospital. MOB states that she and FOB both work outside of the home, FOB is a manager of warehouse at [employer] and MOB works as an INTERNET ARCHITECT gaming department head at [employer]. When both parents are working either maternal or paternal grandma will watch their children. MOB reports that ROBLES has mental health history positive for psychotic episodes, anxiety, depression and PTSD from his childhood. ROBLES is connected to mental health services at [facility] where they prescribe him Lexapro to help him manage his mental health symptoms. MOB states that ROBLES's mental health is currently managed and he is a great stable support to her and their children. MOB states that she has had anxiety in the past and did experience some anxiety after her son was born. MOB states that her PCP prescribed her Celexa to help her. KEITH reports to feeling managed during her , and states that since baby has been born she has felt great. MOB states that she is familiar with signs and symptoms of baby blues and to be on the lookout for. MOB states that FOElizabeth would be able to recognize if MOB were struggling and would know how to help and support her. KEITH denies substance use prior to and during , but does state that her father has history of alcoholism. MOB states that he will not be a primary caregiver to baby, and she is mindful of her genetic disposition. Sw encouraged MOB to utilize safe and healthy coping skills during . Sw educated on shaken baby prevention and ABCs of safe sleep. Assessment: MOB and baby admitted following labor and delivery of . MOB was observed laying on bed comfortably and holding baby in a loving manner. MOB observed to provide loving and appropriate hands on care to . MOB made and maintained eye contact and participated openly in conversation and completion of psychosocial assessment. Both parents have mental health history from young adulthood that includes anxiety and depression. Both parents are prescribed medication to help them manage their mental health symptoms. Parents have obtained all necessary baby supplies and have natural supports in place. Education provided to parents on shaken baby prevention and ABCs of safe sleep, parents express understanding. Plan:???MOB and baby to be discharged when medically ready. Information provided to parents including: Help Me Grow, shaken baby prevention, ABCs of safe sleep, [facility], [facility] list of resources and information on signs and symptoms of baby blues and anxiety and depression to be mindful of. Eddie Melissa, MIGRANT LEADER, LAW FIRM CONSULTANT No further needs requested or indicated.
--- NOTE | 2025-04-02 15:12 | NURSING ---
Follow up phone call made, no answer, left voicemail
== END 2025-03-28 15:50 | disposition home or self-care (01) | DRG 539 ==
PROVIDERS: Admitting Provider Obstetrics & Gynecology; PCP Nurse Practitioner Family; Referring Provider Obstetrics & Gynecology; Visit Provider Obstetrics & Gynecology
PROC: 10D00Z1 Extraction of Products of Conception, Low, Open Approach (ICD-10-PCS; CPT 59514; principal; 2025-03-27 11:45)
DX: O34.219 Maternal care for unspecified type scar from previous cesarean delivery (principal); O99.02 Anemia complicating childbirth; O99.214 Obesity complicating childbirth; Z30.2 Encounter for sterilization; Z37.0 Single live birth; Z87.891 Personal history of nicotine dependence; Z3A.39 39 weeks gestation of pregnancy
CPT/HCPCS: 59025; 59050; 85025; 85027; 86780; 86850; 86900; 86901; 88302; 99221; A4216; G0378; J2405